=== PATIENT | male | born 1960 | race Native Hawaiian/Other Pacific Islander ===

== ENCOUNTER 2019-05-23 11:32 | Emergency (ER) | payer OTHER ==
[2019-05-23 11:41] VITALS: BP 107/68
--- NOTE | 2019-05-23 11:45 | Event Note ---
ED Screening Note Date of service: 05/23/19 Time: 11:43 ED Screening Note: 58 y o presents with painful, growing mass/boil to his right groin x 1 week This initial assessment/diagnostic orders/clinical plan/treatment(s) is/are subject to change based on patients health status, clinical progression and re- assessment by fellow clinical providers in the ED. Further treatment and workup at subsequent clinical providers discretion. Patient/guardian urged not to elope from the ED as their condition may be serious if not clinically assessed and managed. Initial orders include: ACC eval
--- NOTE | 2019-05-23 13:14 | Emergency Department Report ---
HPI - General Chief Complaint: Skin/Abscess/Foreign Body Time Seen by Provider: 05/23/19 11:41 - HPI HPI: 58-year-old male presents to the emergency department with complaint of swelling and pain to the right groin has been going on for the past 3 weeks. The patient says that he is able to press it in and make it go away every evening but then it comes back. He denies any abdominal pain, nausea, vomiting, fever, skin color change. Patient has a history of some type of liver problems that his significant other says is a "corroded liver." He has not taken anything for her symptoms prior to arrival today. No primary care physician. ED Past Medical Hx - Past Medical History Additional medical history: HERNIA LIVER PROBLEMS - Surgical History Additional Surgical History: abd surgery r/t knift wound to back>30years ago - Social History Smoking Status: Never Smoker - Medications Home Medications: Home Medications Medication Instructions Recorded Confirmed Last Taken Type Ibuprofen [Motrin] 600 mg PO Q8H PRN #30 tablet 08/05/18 Unknown Rx traMADol [Ultram] 50 mg PO Q6HR PRN #20 tablet 08/05/18 Unknown Rx ED Review of Systems ROS: Stated complaint: PELVIC PAIN Other details as noted in HPI Comment: All other systems reviewed and negative Constitutional: denies: chills, fever Respiratory: denies: cough, shortness of breath Cardiovascular: denies: chest pain, palpitations Gastrointestinal: denies: abdominal pain, vomiting Genitourinary: other (right groin pain and swelling). denies: dysuria Musculoskeletal: denies: back pain, arthralgia Skin: denies: rash, lesions Physical Exam - Physical Exam Vital Signs: Vital Signs 05/23/19 11:39 Temperature 98.1 F Pulse Rate 85 Respiratory 18 Rate Blood Pressure 107/68 O2 Sat by Pulse 98 Oximetry Physical Exam: GENERAL: The patient is well-developed well-nourished. HENT: Normocephalic. Atraumatic. Patient has moist mucous membranes. EYES: Extraocular motions are intact. NECK: Supple. Trachea is midline. CHEST/LUNGS: Clear to auscultation. There is no respiratory distress noted. HEART/CARDIOVASCULAR: Regular. There is no tachycardia. There is no murmur. ABDOMEN: Abdomen is soft, nontender. Patient has normal bowel sounds. SKIN: Skin is warm and dry. NEURO: The patient is awake, alert, and oriented. The patient is cooperative. The patient has no focal neurologic deficits. Normal speech. MUSCULOSKELETAL: There is no tenderness or deformity. There is no evidence of acute injury. : Patient has a reducible direct right inguinal hernia. ED Course Vital Signs 05/23/19 11:39 Temperature 98.1 F Pulse Rate 85 Respiratory 18 Rate Blood Pressure 107/68 O2 Sat by Pulse 98 Oximetry ED Medical Decision Making - Medical Decision Making This patient presents to the emergency department with a complaint of some swelling and discomfort to the right groin. Upon Examination it appears to be a right-sided direct inguinal hernia. It was easily reducible. Afterwards he has no groin pain. He has no abdominal pain. No problems with constipation for concerns of obstruction. I explained to him about the diagnosis of the hernia and the fact that it is reducible shows that it is not an emergent condition. He will need to follow up outpatient with general surgery and he has been given a referral for Dr. Palafox. He may need elective outpatient surgical repair. However he also understands that he must return to the emergency department with any worsening of his symptoms, if it is not reducible, if it becomes very large, if he starts having any significant inability to have a bowel movement, as we discussed strangulation and incarceration as well. At this time, however, the patient is safe for discharge home. - Differential Diagnosis direct versus indirect inguinal hernia, abscess, malignancy Critical Care Time: No Critical care attestation.: If time is entered above; I have spent that time in minutes in the direct care of this critically ill patient, excluding procedure time. ED Disposition Clinical Impression: Right inguinal hernia Disposition: DC-01 TO HOME OR SELFCARE Is pt being admited?: No Condition: Stable Instructions: Inguinal Hernia (ED) Additional Instructions: Please follow-up with a general surgeon regarding your right inguinal hernia. I am giving him a referral for a local general surgeon, Dr. Palafox. He should also follow up with a primary care physician. Return to the emergency Department with any worsening of your symptoms, especially if you are unable to press in or reduce the hernia, if there is increased pain to the groin or abdomen, or with any acute distress. Referrals: KATHY PALAFOX MD [Staff Physician] - 2-3 Days DENNIS DANGELO DO [Staff Physician] - 2-3 Days [facility] [Outside] - 2-3 Days Time of Disposition: 13:14
== END 2019-05-23 13:37 | disposition home or self-care (01) ==
LOC: ED 11:32
DX: K40.90 Unilateral inguinal hernia, without obstruction or gangrene, not specified as recurrent (principal); Z98.890 Other specified postprocedural states